=== PATIENT | female | born 1960 | race Caucasian/White ===

== ENCOUNTER → 2016-08-23 | Day surgery (SDC) | payer OTHER ==
[~2016-08-23] VITALS: Ht 157.5 cm; Wt 54.3 kg
[~2016-08-23] MED LIST: *HYDROmorphone PF 1 MG VIAL PERIprocedural Use ONLY ONE; *morphine SULFATE 8 MG/ML PERIprocedure ONLY ONE; APREPITANT 40 MG CAP ONE; ASPI1TAB69 PO; ATOR20TA15 PO; AZAT50 PO; BUPIVACAINE/EPINEPHRINE 0.25% PF 30 ML VIAL ONE; CHLORHEXIDINE GLUCONATE 4% SOLN 120 ML BTL TOP SCH; CYMB60CA PO; DEXAMETHASONE SOD PHOS 4 MG/ML VIAL ONE; DO NOT ADM ANY ANTICOAGULANT DRUGS XX PRN; FAMOTIDINE 20 MG/2 ML VIAL ONE; GENTAMICIN SULFATE 80 MG/2 ML VIAL ONE; INSULIN HUMAN REGULAR 1,000 UNITS/10 ML VIAL SQ PRN; KETOROLAC TROMETHAMINE 30 MG/ML (IVP) VIAL IVP ONE; LACTATED RINGER'S 1000 ML IV SCH; METOPROLOL TARTRATE 25 MG TAB PO PRN; MIDAZOLAM HCL 2 MG/2 ML VIAL ONE; MORPHINE SULFATE 4 MG/ML INJ IV PUSH PRN; ONDANSETRON HCL 4 MG/2 ML VIAL IV PRN; ONDANSETRON HCL 4 MG/2 ML VIAL IV PUSH ONE; PERC5TAB12 PO; PHENYLEPH/NS 1000 MCG/10 ML SYR IV ONE; PLAQ200T PO; PROPOFOL 200 MG/20 ML AMP IV ONE; RANI150C PO; SODIUM CHLORID 0.9% 500 ML IV SCH; SODIUM CHLORIDE 0.9% FLUSH 5 ML FLUSH IVF PRN; SODIUM CHLORIDE 0.9% FLUSH 5 ML FLUSH IVF SCH; TRAM50TA PO; VANCOMYCIN 1000 MG/NS 250 ML (for <70 kg) IV SCH; VITA200013 PO; ZOLP10TA3 PO; ZYRT10CA PO; ePHEDrine/NS 50 MG/5 ML SYR IV ONE; oxyCODONE/ACETAMINOPHEN 5 MG/325 MG TAB PO PRN; traMADol HCL 50 MG TAB PO ONE
[2016-08-23 12:19] VITALS: BP 134/88; PULSE 80; RESP 18; TEMP 98.1; O2SAT 96
[2016-08-23 12:33] LABS: AUTOMATED NEUTROPHIL # 2.5 TH/MM3 (1.8-7.7); BASOPHIL % 0.5 % (0.0-2.0); EOSINOPHIL # 0.3 TH/MM3 (0-0.4); EOSINOPHIL % 8.5 % (0.0-4.0); HEMATOCRIT 43.4 % (35.0-46.0); HEMO FLAGS DIFF FINAL; LYMPH % 19.3 % (9.0-44.0); LYMPHOCYTE # 0.7 TH/MM3 (1.0-4.8); MEAN CELL VOLUME 92.7 FL (80.0-100.0); MEAN CORPUSCULAR HEMOGLOBIN 30.6 PG (27.0-34.0); MONO % 7.3 % (0.0-8.0); NEUT % 64.4 % (16.0-70.0); PLATELET COUNT 153 TH/MM3 (150-450); RED BLOOD COUNT 4.68 MIL/MM3 (4.00-5.30); RED CELL DISTRIBUTION WIDTH 14.7 % (11.6-17.2); WHITE BLOOD COUNT 3.8 TH/MM3 (4.0-11.0)
--- NOTE | 2016-08-23 14:51 | PD.OP ---
cc: Faraz Jean Jr., MD Operative Report Date of Surgery: Aug 23, 2016 Preoperative Diagnosis: Close extra articular right distal radius fracture Postoperative Diagnosis: Same Procedure: Open reduction internal fixation right distal radius Anesthesia: Gen. Surgeon: Faraz Jean Volunteer Services Director(s): Amado Lott PA-C The surgical procedure was assisted by my physician oncology physician assistant. My physician oncology physician assistant presence was necessary throughout this case for the manipulation and positioning of the surgical extremity. My physician oncology physician assistant was assisting me throughout the duration of this procedure. The skill set of a physician oncology physician assistant was medically necessary to complete this procedure. During the surgical case, the surgical garment inspector was working at the back table and the physician oncology physician assistant was directly assisting me. Resident Surgeon: Marian Operation and Findings: Patient was seen and evaluated preoperatively and found to have a extra- articular displaced distal radius fracture. She failed conservative treatment as her fracture has lost reduction after cast immobilization. Informed consent was obtained after detailed discussion of risk and benefits including bleeding, infection, injury to arteries, nerves, and blood vessels, weakness and numbness of hand, and tendon rupture. Informed consent was obtained. Patient received IV antibiotics prior to incision. Timeout procedure was performed. Operative extremity was prepped with alcohol followed by Hibiclens and draped usual sterile fashion. A standard volar approach to the distal radius was utilized. A 3 inch incision was made over the FCR tendon. Tendon sheath was opened. Pronator quadratus was elevated up. The fracture site was now visualized. Using osteotome the fracture fragments were mobilized. A lamina linotyper was used to hold the reduction. A K wire from the radiostyloid was used to hold provisional fixation. Cancellous chips was used to fill the void at the metaphyseal defect. The fracture did not have intra-articular extension. Traction was applied. Fluoroscopy confirmed appropriate alignment of fracture. A Synthes 2 column variable angle distal radius plate was selected. Plate was provisionally fixed to bone with K wires. 2.7 cortical screws were used to compress plate to bone. Fluoroscopy confirmed appropriate alignment of fracture with well-placed hardware. Multiple 2.7 locking screws were now placed distally. Screws were predrilled and measured for appropriate length. 1 additional screws were placed into the shaft. K wires were removed. Final fluoroscopy revealed excellent of fracture with well-placed hardware. The wound was thoroughly irrigated with sterile saline. Subcutaneous tissue was closed with 3-0 Vicryl and skin was closed with 3-0 nylon. Sterile dressings were applied with Xeroform, 4 x 4, soft roll, and a well padded volar splint. Patient was awakened and transferred to recovery room in stable condition IMPLANTS USED Synthes 2 column variable angle distal radius plate. POSTP-OP PLAN OF ACTIVITY Antibiotics: Ancef Antiocoagulation: none Weight bearing status: NWB Dressing: Do not remove splints Future procedure planned: none Dispo: expected discharge home from PACU Faraz Jean Jr., MD Aug 23, 2016 14:51
--- NOTE | 2016-08-23 15:04 | RADRPT ---
EXAM DATE/TIME: 08/23/2016 14:31 [facility] COMPARISON: No previous studies available for comparison. INDICATIONS: Right wrist fracture repair. OR. MEDICAL HISTORY: None. SURGICAL HISTORY: None. ENCOUNTER: Initial ACUITY: 1 day PAIN SCORE: Non-responsive. LOCATION: Right wrist FINDINGS: Two view right wrist demonstrates the patient has a volar plate across the distal radial fracture. T he resulting alignment is excellent. There are no complications. CONCLUSION: Radial fracture fixated as above. Seven Zepeda MD on August 23, 2016 at 14:55 Board Certified Radiologist. This report was verified electronically.
[2016-08-23 17:10] VITALS: BP 155/82; PULSE 91; RESP 18; TEMP 97.7; O2SAT 93
--- NOTE | 2016-08-24 15:46 | EKG ---
Date Performed: 08/23/2016 Time Performed: 11:37:11 PTAGE: 56 years EKG: Sinus rhythm POSSIBLE RIGHT VENTRICULAR CONDUCTION DELAY PROBABLE SEPTAL MYOCARDIAL INFARCTION , OF INDETERMINATE AGE ABNORMAL ECG NO PREVIOUS TRACING DOCTOR: Shannon Watson Interpretating Date/Time 08/24/2016 15:41:58
== END | disposition home or self-care (01) ==
LOC: HSDC 11:07
PROVIDERS: ATTEND Orthopaedic Surgery
DX: S52.551A Other extraarticular fracture of lower end of right radius, initial encounter for closed fracture (principal); I12.9 Hypertensive chronic kidney disease with stage 1 through stage 4 chronic kidney disease, or unspecified chronic kidney disease; N18.2 Chronic kidney disease, stage 2 (mild); E78.5 Hyperlipidemia, unspecified; W19.XXXA Unspecified fall, initial encounter
CPT/HCPCS: 01830; 25607; 73100; 76000; 85025; 86850; 86900; 86901; 93005; C1713; J1100; J1170; J1580; J2250; J2270; J2370; J2405; J3010; J3370; J7050; J7120; J8501